=== PATIENT | male | born 1975 | race Caucasian/White ===

== ENCOUNTER 2021-01-08 12:27 | Emergency (ER) | payer MEDICARE, OTHER ==
[~2021-01-08 12:27] MED LIST: BACTRIM DS TAB1 EACH PO; CIPRO500 MG PO; TRAMADOL HCL50 MG PO; ZYVOX600 MG PO
[2021-01-08] MEDS ORDERED: CEPHALEXIN500 MG PO (15:40)
[2021-01-08] MEDS ORDERED: BACTRIM DS TAB1 EACH PO (15:40)
== END 2021-01-08 15:48 | disposition home or self-care (01) ==
LOC: ER1 12:27
DX: T84.54XA Infection and inflammatory reaction due to internal left knee prosthesis, initial encounter (principal); L03.116 Cellulitis of left lower limb; Z88.5 Allergy status to narcotic agent
CPT/HCPCS: 99283